=== PATIENT | male | born 1995 | race Two or more races ===

== ENCOUNTER 2022-08-14 04:55 | Emergency (ER) | payer BC, OTHER ==
[~2022-08-14] VITALS: Ht 180.3 cm; Wt 99.8 kg
--- NOTE | 2022-08-14 05:05 | NUR ---
ASHLEIGH 876 FROM HOME FOR C/O R FLANK PAIN X 30 MIN. PAIN SCALE OF 10/10. PATIENT IS AAOX4. CRYING BUT ABLE TO MAKE NEEDS KNOWN. PLACED COMFORTABLY IN BED. VITALS CHECKED.
--- NOTE | 2022-08-14 05:10 | NUR ---
IV CANNULA G18 INSERTED ON RIGHT AC. BLOOD DRAWN AND SENT TO LAB
[2022-08-14] MEDS ORDERED: KETOROLAC TROMETHAMINE INJ 30 MG/ML VIAL ONE (05:12)
--- NOTE | 2022-08-14 05:20 | NUR ---
BROUGHT PT TO CT DEPT
[2022-08-14] MEDS ORDERED: KETOROLAC TROMETHAMINE INJ 30 MG/ML VIAL IV ONE (05:30)
[2022-08-14] MEDS ORDERED: IV NS 0.9% 1,000 ML BAG IV ONE (05:30)
[2022-08-14 05:53] LABS: BASOPHILS % (AUTO) 0.4 % (0.0-2.0); EOSINOPHILS % (AUTO) 1.9 % (0.0-6.0); HEMATOCRIT 42 % (39-51); HEMOGLOBIN 14.2 g/dL (13.5-17.5); LYMPHOCYTES # (AUTO) 2.9 K/uL (0.8-4.8); LYMPHOCYTES % (AUTO) 36.6 % (20.0-44.0); MEAN CORPUSCULAR HGB CONC 34 g/dl (31.0-36.0); MEAN CORPUSCULAR VOLUME 86 fL (80-96); MONOCYTES # (AUTO) 0.6 K/uL (0.1-1.30); MONOCYTES % (AUTO) 7.4 % (2.0-12.0); NEUTROPHILS # (AUTO) 4.2 K/uL (1.8-8.9); NEUTROPHILS % (AUTO) 53.7 % (43.0-81.0); PLATELET COUNT (AUTO) 225 K/uL (150-450); RED BLOOD CELL COUNT(AUTO) 4.82 MIL/uL (4.5-6.0); WHITE BLOOD COUNT (AUTO) 7.9 K/uL (4.3-11.0)
[2022-08-14] MEDS ORDERED: TAMSULOSIN 0.4 MG CAP.SR.24H PO ONE (06:00)
[2022-08-14] MEDS ORDERED: TAMSULOSIN 0.4 MG CAP.SR.24H ONE (06:04)
[2022-08-14 06:10] LABS: BILIRUBIN,DIRECT 0.1 mg/dL (0.0-0.2); BILIRUBIN,TOTAL 0.3 mg/dL (0.2-1.0); CALCIUM, SERUM 8.8 mg/dL (8.5-10.1); POTASSIUM 3.4 mmol/L (3.5-5.1); TOTAL PROTEIN, SERUM 6.7 g/dL (6.4-8.2)
[2022-08-14 07:22] LABS: BILIRUBIN,URINE NEGATIVE (NEGATIVE); COLOR,URINE YELLOW (YELLOW); LEUKOCYTE ESTERASE ,URINE NEGATIVE (NEGATIVE); NITRITE, URINE NEGATIVE (NEGATIVE); PROTEIN,URINE NEGATIVE (NEGATIVE); UGLUCOSE NEGATIVE (NEGATIVE); UROBILINOGEN,URINE 0.2 EU/dL (0.2)
[2022-08-14] MEDS ORDERED: IBUP-1953 PO (07:30)
[2022-08-14] MEDS ORDERED: TAMS-12 PO (07:30)
[2022-08-14] MEDS ORDERED: HYDR-3976 PO (07:30)
[2022-08-14 07:42] VITALS: BP 136/88
--- NOTE | 2022-08-14 07:42 | NUR ---
IV removed. Catheter intact and site benign. Pressure and 4x4 applied to site. No bleeding noted.Patient discharged to home in stable condition. Written and verbal after care instructions given. Patient verbalizes understanding of instruction.
[2022-08-14 07:52] LABS: BACTERIA,URINE None seen /HPF (None Seen); RBC,URINE 0-2 /HPF (0-2); WBC,URINE NONE SEEN /HPF (0-3)
[2022-08-14 07:53] LABS: SQUAMOUS EPITHELIAL CELL,UR Few /HPF (None Seen)
== END 2022-08-14 07:43 | disposition home or self-care (01) ==
LOC: ER 04:57
DX: N23 Unspecified renal colic (principal); N20.1 Calculus of ureter; Z87.442 Personal history of urinary calculi; Z90.89 Acquired absence of other organs
CPT/HCPCS: 99284; 74176; 96374; 96361; 85025; 80048; 83690; 80076; 81001; 36415; J1885; J7030